=== PATIENT | male | born 1940 | race Caucasian/White ===

== ENCOUNTER 2019-11-26 06:00 | Outpatient (RCR) | payer OTHER, SELFPAY | END 2019-12-05 23:59 | disposition home or self-care (01) | LOC: TPT 06:00 | PROVIDERS: Family Provider Family Medicine; PCP Family Medicine; Visit Provider Family Medicine | DX: M51.36 Other intervertebral disc degeneration, lumbar region (principal) | CPT/HCPCS: 97110; 97161 ==

== ENCOUNTER 2019-12-06 06:00 | Outpatient (RCR) | payer OTHER, SELFPAY | END 2019-12-17 23:00 | disposition home or self-care (01) | LOC: TPT 06:00 | PROVIDERS: Family Provider Family Medicine; PCP Family Medicine; Visit Provider Family Medicine | DX: M47.896 Other spondylosis, lumbar region (principal) | CPT/HCPCS: 97110; 97530 ==